=== PATIENT | female | born 1945 | race Hispanic/Latino ===

== ENCOUNTER 2016-09-08 08:45 | Outpatient (CLI) | payer MEDICARE ==
--- NOTE | 2016-09-09 08:33 | Cat Scan Report ---
CT CHEST, ABDOMEN AND PELVIS WITH CONTRAST: 09/08/16 08:45:00 CLINICAL: History of cancer of the descending colon. COMPARISON: 04/14/15 CT abdomen and 05/12/14 CT chest TECHNIQUE: Volumetric acquisition and 1.25 millimeter scan reconstructions after the uneventful intravenous injection of 100 cc of Omnipaque 300. Consent was obtained prior to the administration of the contrast. Oral contrast was also given. FINDINGS: Chest: Interval development of lobar patchy groundglass opacities and intralobular septal thickening. Relatively symmetric involvement of both upper and lower lobes with some sparing of the right middle lobe. No pulmonary nodule or mass. No pleural effusion. Normal aorta, heart and pulmonary arteries. Normal esophagus and trachea. No mediastinal or hilar lymphadenopathy.No axillary or supraclavicular lymphadenopathy. Stable enlargement of the left thyroid lobe with multiple nodules. Abdomen: Normal liver and bile ducts status post cholecystectomy. Normal stomach, duodenum, pancreas and spleen. Normal adrenal glands and kidneys. Renal collecting systems and ureters are nondilated. Mild calcification of the abdominal aorta and iliac arteries. The inferior vena cava is normal. No lymphadenopathy.No ascites.The small bowel is normal. Status post partial left colon resection with a normal anastomosis of the splenic flexure. Normal appendix. Stable fat containing umbilical hernia with a relatively wide neck and no extension of bowel into the hernia. A more cephalad small ventral hernia a mild bulge of the transverse colon into it. These hernias are stable compared to the prior exam. Pelvis: Normal urinary bladder and rectum.Normal uterus and ovaries. No adnexal mass or free fluid. Normal sigmoid colon. Bone windows demonstrate no suspicious bone lesion. IMPRESSION:1. Status post left partial colectomy and no evidence of disease recurrence or metastasis 2. Interval development of multilobar interstitial lung disease. 3. Status post cholecystectomy. 4. Stable ventral hernias.
== END 2016-09-08 08:46 | disposition home or self-care (01) ==
LOC: SPVIMAG 08:45
PROVIDERS: ATTEND Internal Medicine Hematology & Oncology
DX: C18.6 Malignant neoplasm of descending colon (principal); K42.9 Umbilical hernia without obstruction or gangrene; K43.9 Ventral hernia without obstruction or gangrene; J84.89 Other specified interstitial pulmonary diseases; E04.2 Nontoxic multinodular goiter; I70.0 Atherosclerosis of aorta; Z90.49 Acquired absence of other specified parts of digestive tract
CPT/HCPCS: 71260; 74177; Q9967

== ENCOUNTER 2016-12-09 07:45 | Outpatient (CLI) | payer MEDICARE | END 2016-12-09 07:46 | disposition home or self-care (01) | LOC: VAS 07:45 | PROVIDERS: ATTEND Internal Medicine Hematology & Oncology | DX: M79.661 Pain in right lower leg (principal); R60.9 Edema, unspecified; C18.6 Malignant neoplasm of descending colon; L52 Erythema nodosum; D69.49 Other primary thrombocytopenia; E83.52 Hypercalcemia; J45.909 Unspecified asthma, uncomplicated; Z87.891 Personal history of nicotine dependence ==

== ENCOUNTER 2017-01-17 13:02 | Outpatient (CLI) | payer MEDICARE ==
--- NOTE | 2017-01-17 14:15 | Mammography Report ---
BILATERAL MAMMOGRAM: FINDINGS: The breasts are almost entirely fat (<25% glandular). No mass, distortion, suspicious calcification, or skin change is seen. No interval change compared to prior exams dating back to December 2014. CAD was utilized. IMPRESSION: Negative mammogram. There is no mammographic evidence of malignancy. RECOMMENDATION: Follow-up per ACS guidelines. BI-RADS CATEGORY: 1 = Negative ACR BI-RADS MAMMOGRAPHIC CODES: 0 = Needs additional imaging evaluation; 1 = Negative; 2 = Benign; 3 = Probably benign; 4 = Suspicious; 5 = Malignant; 6 = Known biopsy-proven malignancy COMMENT: 1. Dense breast tissue, i.e., adenosis, fibrocystic changes, etc., may obscure an underlying neoplasm. 2. Approximately 10% of cancers are not detected with mammography. 3. A negative mammography report should not delay biopsy if a clinically suspicious mass is present. COMMENT: Patient follow-up letters are generated in [employer].
== END 2017-01-17 13:03 | disposition home or self-care (01) ==
LOC: SPVWC 13:02
PROVIDERS: ATTEND Internal Medicine
DX: Z12.31 Encounter for screening mammogram for malignant neoplasm of breast (principal); J45.909 Unspecified asthma, uncomplicated; Z87.891 Personal history of nicotine dependence
CPT/HCPCS: 77067; G0202

== ENCOUNTER 2017-02-04 10:17 | Outpatient (CLI) | payer MEDICARE ==
--- NOTE | 2017-02-04 15:13 | Nuclear Medicine Report ---
Gastric emptying scan: Following oral ingestion of technetium 99m tagged sulfur colloid oatmeal the patient demonstrated a one half gastric emptying time of 22 minutes which is well within are normal limit of 90 minutes. Impression: Normal exam.
== END 2017-02-04 10:18 | disposition home or self-care (01) ==
LOC: NM 10:17
PROVIDERS: ATTEND Internal Medicine Gastroenterology
DX: R14.0 Abdominal distension (gaseous) (principal); R12 Heartburn; J45.909 Unspecified asthma, uncomplicated; Z87.891 Personal history of nicotine dependence
CPT/HCPCS: 78264; A9541

== ENCOUNTER 2018-01-24 11:28 | Outpatient (CLI) | payer MEDICARE ==
--- NOTE | 2018-01-25 11:39 | Mammography Report ---
BILATERAL DIGITAL SCREENING MAMMOGRAM with CAD: 01/24/18 11:28:00 CLINICAL: Routine screening. COMPARISON:01/17/17 FINDINGS: The breasts are almost entirely fatty. No mass, architectural distortion or suspicious calcifications. IMPRESSION: No mammographic evidence of malignancy. BI-RADS CATEGORY: 1 - - Negative RECOMMENDATION: Routine mammographic screening in one year. COMMENT: Patient follow-up letters are generated by our [employer] application.
== END 2018-01-24 11:29 | disposition home or self-care (01) ==
LOC: SPVWC 11:28
PROVIDERS: ATTEND Internal Medicine
DX: Z12.31 Encounter for screening mammogram for malignant neoplasm of breast (principal); K21.9 Gastro-esophageal reflux disease without esophagitis; J45.909 Unspecified asthma, uncomplicated; Z87.891 Personal history of nicotine dependence
CPT/HCPCS: 77067

== ENCOUNTER 2019-02-05 13:39 | Outpatient (CLI) | payer MEDICARE ==
--- NOTE | 2019-02-06 14:49 | Mammography Report ---
DIGITAL SCREENING MAMMOGRAM WITH CAD, 02/05/2019 INDICATION: Routine screening mammography. TECHNIQUE: Digital bilateral 2D mammography was obtained in the craniocaudal and mediolateral obliq ue projections. This examination was interpreted with the benefit of Computer-Aided Detection analysi s. COMPARISON: 01/24/2018 FINDINGS: Breast Density: The breasts are almost entirely fatty. There is no evidence of dominant mass, suspicious calcifications or architectural distortion in eithe r breast. IMPRESSION: No mammographic evidence of malignancy. Follow up recommendation: Routine yearly BI-RADS Category 1: Negative. A "normal" or negative report should not discourage follow up or biopsy of a clinically significant f inding. A written summary of these findings will be mailed to the patient. The patient will be entered into a mammography reporting system which will generate a reminder letter for the patient's next appointmen t at the appropriate interval. The [employer] recommends yearly mammograms starting at age 40 and continuing as l john as a woman is in good health. Breast MRI is recommended for women with an approximate 20-25% or greater lifetime risk of breast cancer, including women with a strong family history of breast or ova hilario cancer or who have been treated for Hodgkin's disease. Signer Name: Berhane Bills MD Signed: 02/06/2019 2:45 PM Workstation Name: [id number]
== END 2019-02-05 13:40 | disposition home or self-care (01) ==
LOC: SPVWC 13:39
PROVIDERS: ATTEND Internal Medicine
DX: Z12.31 Encounter for screening mammogram for malignant neoplasm of breast (principal); E03.9 Hypothyroidism, unspecified; K21.9 Gastro-esophageal reflux disease without esophagitis; J45.909 Unspecified asthma, uncomplicated
CPT/HCPCS: 77067

== ENCOUNTER 2020-05-14 13:53 | Outpatient (CLI) | payer MEDICARE ==
--- NOTE | 2020-05-14 15:53 | Mammography Report ---
BILATERAL DIGITAL SCREENING MAMMOGRAM WITH CAD HISTORY: Screening mammogram. TECHNIQUE: Routine digital mammographic imaging performed. This examination was interpreted with indra diallo benefit of Computer-aided Detection analysis. COMPARISON: 02/05/2019, 01/24/2018, 01/17/2017. FINDINGS: Breast Density: scattered fibroglandular appearance of the breast tissue. Digital CC and MLO views demonstrate no mammographic evidence of malignancy. IMPRESSION: No mammographic evidence of malignancy. If the clinical examination remains stable, recommend bilate ral mammogram in approximately one year. BIRADS 1: Negative. FURTHER INFORMATION: According to the [employer], yearly mammograms are recommend ed starting at age 40 and continuing as long as a woman is in good health. Clinical Breast Exams shou ld be part of a periodic health exam-about every 3 years for women in their 20s and 30s and every yea r for women 40 and over. Breast self exam is an option for women starting in their 20s. Any breast ch sumaya noted on a breast self exam should be reported promptly to the patient's healthcare provider. Br east MRI is recommended for women with an approximately 20-25% or greater lifetime risk of breast can cer, including women with a strong family history of breast or ovarian cancer and women who have been treated for Hodgkin's disease. A negative Mammography report should not discourage follow up or biopsy of a clinically significant f inding and/or abnormality. Dense breast tissue may obscure small neoplasms. The patient will be entered into a reminder system with a target due date for the next screening mamm ogram. Signer Name: Elliot Jain MD Signed: 05/14/2020 3:49 PM Workstation Name: [id number]
== END 2020-05-14 13:54 | disposition home or self-care (01) ==
LOC: SPVWC 13:53
PROVIDERS: ATTEND Internal Medicine
DX: Z12.31 Encounter for screening mammogram for malignant neoplasm of breast (principal)
CPT/HCPCS: 77067

== ENCOUNTER 2021-06-30 15:24 | Outpatient (CLI) | payer MEDICARE ==
--- NOTE | 2021-07-01 13:09 | Mammography Report ---
DIGITAL SCREENING MAMMOGRAM WITH CAD, 06/30/2021 CLINICAL INFORMATION / INDICATION: Routine screening mammography. SCREENING MAMMO TECHNIQUE: Digital bilateral 2D mammography was obtained in the craniocaudal and mediolateral obliqu e projections. This examination was interpreted with the benefit of Computer-Aided Detection analysis . COMPARISON: 02/05/2019 and 05/14/2020. FINDINGS: Breast Density: The breasts are almost entirely fatty. No dominant mass, suspicious calcifications, or architectural distortion in either breast. A small benign intramammary lymph node in the left upper outer quadrant is stable. IMPRESSION: No mammographic evidence of malignancy. Follow up recommendation: Routine yearly BI-RADS Category 2: BENIGN. A "normal" or negative report should not discourage follow up or biopsy of a clinically significant f inding. A written summary of these findings will be mailed to the patient. The patient will be entered into a mammography reporting system which will generate a reminder letter for the patient's next appointmen t at the appropriate interval. The [employer] recommends yearly mammograms starting at age 40 and continuing as l john as a woman is in good health. Breast MRI is recommended for women with an approximate 20-25% or greater lifetime risk of breast cancer, including women with a strong family history of breast or ova hilario cancer or who have been treated for Hodgkin's disease. Signer Name: Salo Enriquez MD Signed: 07/01/2021 1:05 PM Workstation Name: [id number]
== END 2021-06-30 15:25 | disposition home or self-care (01) ==
LOC: SPVWC 15:24
PROVIDERS: ATTEND Internal Medicine
DX: Z12.31 Encounter for screening mammogram for malignant neoplasm of breast (principal); N64.89 Other specified disorders of breast
CPT/HCPCS: 77067